=== PATIENT | male | born 1975 | race Hispanic/Latino ===

== ENCOUNTER 2022-08-15 22:14 | Inpatient (IN) | payer SELFPAY ==
[~2022-08-15 22:14] MED LIST: Iopamidol-370 76% 500 ML MDV (1 ML CHARGE) ONE
[2022-08-15] MEDS ORDERED: Nitroglycerin 2% Ointment 1 INCH/1 GM Packet ONE (22:38)
[2022-08-15 22:59] LABS: #Monocytes 1.7 thou/uL (0.11-0.59); %Basophils 0.1 % (0.0-1.0); %Lymphocytes 5.7 % (21.0-51.0); %Monocytes 9.3 % (0.0-10.0); %Neutrophils 84.9 % (42.0-75.0); Hemoglobin 15.2 g/dL (14.0-18.0); Mean Corpuscular HGB CONC 35.1 g/dL (32.0-36.0); Mean Corpuscular Hemoglobin 32.1 pg (27.0-31.0); Mean Corpuscular Volume 91.6 fl (78.0-98.0); Platelet Count 193 10x3/uL (130-400); RBC Distribution Width 11.3 % (11.5-14.5); Red Blood Cell (RBC) Count 4.73 mill/uL (4.70-6.10); White Blood Cell (WBC) Count 17.6 10x3/uL (4.8-10.8)
[2022-08-15 23:23] LABS: ALT (SGPT) 118 U/L (8-55); AST (SGOT) 91 U/L (5-34); Albumin 4.1 g/dL (3.5-5.0); Alkaline Phosphatase 172 U/L (40-110); Anion Gap 18 mmol/L (10-20); BUN (Urea Nitrogen) 15 mg/dL (8.9-20.6); Bilirubin, Total 6.5 mg/dL (0.2-1.2); CK (CPK) 129 U/L (30-200); Calc. Creatinine Clearance 0 mL/min (70-130); Calcium 9.1 mg/dL (7.8-10.44); Carbon Dioxide 24 mmol/L (22-29); Chloride 97 mmol/L (98-107); Estimated GFR 72; Globulin 3.1 g/dL (2.4-3.5); Glucose 149 mg/dL (70-105); Potassium 3.7 mmol/L (3.5-5.1); Protein, Total 7.2 g/dL (6.0-8.3); Sodium 135 mmol/L (136-145)
[2022-08-16] MEDS ORDERED: Piperacillin/Tazobactam 3.375 GM VIAL ONE ×2 (01:06→13:31)
[2022-08-16] MEDS ORDERED: Morphine 4 MG/ML VIAL ONE (01:06)
[2022-08-16] MEDS ORDERED: Ondansetron PF 4 MG/2 ML Vial IVP PRN (02:11)
[2022-08-16] MEDS ORDERED: Morphine 4 MG/ML VIAL SLOW IVP PRN ×2 (02:19→13:06)
[2022-08-16] MEDS: Lactated Ringer's 1,000 ML IV SCH ×4 (03:05→21:21)
[2022-08-16 03:16] VITALS: BMI 29.2
[2022-08-16] MEDS ORDERED: Piperacillin/Tazobactam 3.375 GM in Sodium Chloride 0.9% 100 ML IVPB SCH (06:00)
[2022-08-16 08:50] LABS: ALT (SGPT) 89 U/L (8-55); AST (SGOT) 61 U/L (5-34); Albumin 3.4 g/dL (3.5-5.0); Alkaline Phosphatase 143 U/L (40-110); Anion Gap 14 mmol/L (10-20); BUN (Urea Nitrogen) 14 mg/dL (8.9-20.6); Bilirubin, Total 6.2 mg/dL (0.2-1.2); Calc. Creatinine Clearance 90 mL/min (70-130); Calcium 8.5 mg/dL (7.8-10.44); Carbon Dioxide 25 mmol/L (22-29); Chloride 101 mmol/L (98-107); Estimated GFR 79; Glucose 106 mg/dL (70-105); Potassium 3.4 mmol/L (3.5-5.1); Protein, Total 6.4 g/dL (6.0-8.3); Sodium 137 mmol/L (136-145)
[2022-08-16] MEDS ORDERED: Bupivacaine HCl 0.5%/Epinephrine 1:200,000/PF 30 ml Vial ONE (11:06)
[2022-08-16] MEDS ORDERED: Iopamidol 15 ML ONE (11:06)
[2022-08-16] MEDS ORDERED: Levofloxacin 500 mg/D5W 100 ml Premix Bag ONE (12:47)
[2022-08-16] MEDS ORDERED: Midazolam HCl 2 mg/2 ml Vial ONE (12:58)
[2022-08-16] MEDS ORDERED: HYDROmorphone 0.5 MG/0.5 ML SYRINGE ONE (12:58)
[2022-08-16] MEDS ORDERED: fentaNYL PF 100 MCG/2 ML SYRINGE ONE (12:58)
[2022-08-16] MEDS ORDERED: Acetaminophen 500 MG TAB PO PRN (13:06)
[2022-08-16] MEDS ORDERED: Ketorolac Tromethamine 30 MG/ML VIAL IVP PRN (13:06)
[2022-08-16] MEDS ORDERED: traMADol HCl 50 MG TAB PO PRN (13:06)
[2022-08-16] MEDS ORDERED: Iopamidol 30 ML ONE ×2 (13:22→15:21)
[2022-08-16] MEDS ORDERED: Sodium Chloride 0.9% 100 ML ONE (13:31)
[2022-08-16] MEDS ORDERED: Lidocaine 1% PF 5 ML VIAL ONE (13:46)
[2022-08-16] MEDS ORDERED: Dexamethasone 20 MG/5 ML VIAL ONE (13:46)
[2022-08-16] MEDS ORDERED: Rocuronium Bromide 10 MG/ML (10ML VIAL) ONE (13:46)
[2022-08-16] MEDS ORDERED: Ondansetron PF 4 MG/2 ML Vial ONE (13:46)
[2022-08-16] MEDS ORDERED: NEOSTIGMINE 3 MG/3 ML SYR 3 MG/3 ML SYRINGE ONE (13:46)
[2022-08-16] MEDS ORDERED: GLYCOPYRROLATE/PF 0.2 MG/ML VIAL ONE (13:46)
[2022-08-16] MEDS ORDERED: PROPOFOL 200 MG/20 ML VIAL ONE (13:46)
[2022-08-16] MEDS ORDERED: Indomethacin 50 MG SUPP ONE (15:23)
[2022-08-16] MEDS ORDERED: SUGAMMADEX SODIUM 200 MG/2 ML VIAL ONE (16:36)
[2022-08-16] MEDS ORDERED: Ondansetron HCl/PF 4 MG/2 ML Vial IVP PRN (16:46)
[2022-08-16] MEDS ORDERED: Promethazine HCl 25 MG/ML VIAL IM PRN (16:46)
[2022-08-16] MEDS ORDERED: fentaNYL 50 mcg/mL 1 mL Vial ONE (17:14)
[2022-08-16 20:21] LABS: Bacteria/HPF None Seen HPF (None Seen); Bilirubin 1+ (Negative); Blood, Urine 2+ (Negative); Clarity Clear (Clear); Glucose, Urine (Dipstick) 70 mg/dL (Negative); Ketone, Urine 60 mg/dL (Negative); Leukocyte Negative Leu/uL (Negative); Nitrite Negative (Negative); Protein, Urine (Dipstick) 10 mg/dL (Neg-Trace); RBC/HPF 21-50 HPF (0-3); Specific Gravity, Urine 1.017 (1.002-1.036); Squamous Epithelial None Seen HPF (0-3); Urobilinogen 3 mg/dL (Less than 2); WBC/HPF 0-3 HPF (0-3)
[2022-08-17] MEDS: Lactated Ringer's 1,000 ML IV SCH ×2 (03:10→10:53)
[2022-08-17] MEDS ORDERED: Sodium Bicarbonate 2.5 MEQ/5 ML VIAL ONE ×2 (07:28→11:00)
[2022-08-17] MEDS ORDERED: Lidocaine 1% PF 5 ML VIAL ONE ×2 (07:28→11:00)
[2022-08-17] MEDS ORDERED: fentaNYL 50 mcg/mL 1 mL Vial ONE ×2 (07:28→11:00)
[2022-08-17] MEDS ORDERED: Midazolam HCl 2 mg/2 ml Vial ONE ×2 (07:28→11:00)
[2022-08-17 07:43] LABS: #Lymphocytes 1.2 thou/uL (1.20-3.40); #Monocytes 1.1 thou/uL (0.11-0.59); #Neutrophils 11.7 thou/uL (1.40-6.50); %Basophils 0.2 % (0.0-1.0); %Eosinophils 0.1 % (0.0-10.0); %Lymphocytes 8.3 % (21.0-51.0); %Neutrophils 83.4 % (42.0-75.0); Hemoglobin 12.7 g/dL (14.0-18.0); Mean Corpuscular HGB CONC 33.7 g/dL (32.0-36.0); Mean Corpuscular Hemoglobin 31.3 pg (27.0-31.0); Mean Corpuscular Volume 92.9 fl (78.0-98.0); Mean Platelet Volume 9.5 fL (7.4-10.4); Platelet Count 171 10x3/uL (130-400); RBC Distribution Width 11.3 % (11.5-14.5); Red Blood Cell (RBC) Count 4.08 mill/uL (4.70-6.10)
[2022-08-17 08:03] LABS: PTT 31.1 sec (22.9-36.1)
[2022-08-17 08:04] LABS: ALT (SGPT) 154 U/L (8-55); AST (SGOT) 134 U/L (5-34); Albumin 3.2 g/dL (3.5-5.0); Alkaline Phosphatase 134 U/L (40-110); Anion Gap 12 mmol/L (10-20); BUN (Urea Nitrogen) 15 mg/dL (8.9-20.6); Bilirubin, Total 2.2 mg/dL (0.2-1.2); Calc. Creatinine Clearance 106 mL/min (70-130); Calcium 8.5 mg/dL (7.8-10.44); Carbon Dioxide 26 mmol/L (22-29); Chloride 105 mmol/L (98-107); Estimated GFR 96; Globulin 3.1 g/dL (2.4-3.5); Glucose 132 mg/dL (70-105); Potassium 3.9 mmol/L (3.5-5.1); Protein, Total 6.3 g/dL (6.0-8.3); Sodium 139 mmol/L (136-145)
[2022-08-17 08:05] LABS: ALT (SGPT) 158 U/L (8-55); AST (SGOT) 138 U/L (5-34); Albumin 3.3 g/dL (3.5-5.0); Alkaline Phosphatase 139 U/L (40-110); Bilirubin, Direct 1.6 mg/dL (0.1-0.3); Bilirubin, Total 2.2 mg/dL (0.2-1.2); Protein, Total 6.4 g/dL (6.0-8.3)
[2022-08-17 08:12] LABS: INR-International Normal Ratio 1.1; Prothrombin Time 14.9 sec (12.0-14.7)
[2022-08-17 09:46] LABS: Lipase 6 U/L (8-78)
[2022-08-17] MEDS: hydrALAZINE 20 MG/ML VIAL SLOW IVP PRN (10:53)
[2022-08-17] MEDS ORDERED: Artificial Tear Sol 15 ML BOT R EYE PRN (16:55)
[2022-08-18 07:11] LABS: #Lymphocytes 2.2 thou/uL (1.20-3.40); #Monocytes 0.9 thou/uL (0.11-0.59); #Neutrophils 7.5 thou/uL (1.40-6.50); %Basophils 0.3 % (0.0-1.0); %Eosinophils 0.4 % (0.0-10.0); %Lymphocytes 20.5 % (21.0-51.0); %Monocytes 8.5 % (0.0-10.0); %Neutrophils 70.3 % (42.0-75.0); Hemoglobin 12.2 g/dL (14.0-18.0); Mean Corpuscular HGB CONC 32.2 g/dL (32.0-36.0); Mean Corpuscular Hemoglobin 30.5 pg (27.0-31.0); Mean Corpuscular Volume 94.8 fl (78.0-98.0); Mean Platelet Volume 9.3 fL (7.4-10.4); Platelet Count 186 10x3/uL (130-400); RBC Distribution Width 11.6 % (11.5-14.5); Red Blood Cell (RBC) Count 3.99 mill/uL (4.70-6.10); White Blood Cell (WBC) Count 10.7 10x3/uL (4.8-10.8)
[2022-08-18 07:33] LABS: ALT (SGPT) 120 U/L (8-55); AST (SGOT) 59 U/L (5-34); Albumin 3.1 g/dL (3.5-5.0); Alkaline Phosphatase 117 U/L (40-110); Bilirubin, Direct 0.9 mg/dL (0.1-0.3); Bilirubin, Total 1.3 mg/dL (0.2-1.2); Protein, Total 6.2 g/dL (6.0-8.3)
[2022-08-18 07:39] LABS: ALT (SGPT) 121 U/L (8-55); AST (SGOT) 63 U/L (5-34); Albumin 3.1 g/dL (3.5-5.0); Alkaline Phosphatase 120 U/L (40-110); Anion Gap 11 mmol/L (10-20); BUN (Urea Nitrogen) 13 mg/dL (8.9-20.6); Bilirubin, Total 1.4 mg/dL (0.2-1.2); Calc. Creatinine Clearance 127 mL/min (70-130); Calcium 8.5 mg/dL (7.8-10.44); Carbon Dioxide 26 mmol/L (22-29); Chloride 106 mmol/L (98-107); Estimated GFR 110; Globulin 3.2 g/dL (2.4-3.5); Glucose 91 mg/dL (70-105); Potassium 3.6 mmol/L (3.5-5.1); Protein, Total 6.3 g/dL (6.0-8.3); Sodium 139 mmol/L (136-145)
[2022-08-18] MEDS ORDERED: Losartan 25 MG TAB PO SCH (10:00)
[2022-08-18] MEDS: hydrALAZINE 20 MG/ML VIAL SLOW IVP PRN ×2 (13:56→20:43)
[2022-08-19] MEDS ORDERED: Losartan 25 MG TAB PO SCH ×2 (09:00)
[2022-08-19 15:30] VITALS: BP 164/101; TEMP 98.8
== END 2022-08-19 17:18 | disposition home or self-care (01) | DRG 659 ==
LOC: ERS 22:14 → T4-A 08-16 01:33 → OBSVTOIN 08-17 11:59
PROVIDERS: ADMIT Student in an Organized Health Care Education/Training Program; ATTEND Student in an Organized Health Care Education/Training Program
PROC: 0FT44ZZ Resection of Gallbladder, Percutaneous Endoscopic Approach (ICD-10-PCS; 2022-08-16)
PROC: 0T778DZ Dilation of Left Ureter with Intraluminal Device, Via Natural or Artificial Opening Endoscopic (ICD-10-PCS; 2022-08-16)
PROC: BF10YZZ Fluoroscopy of Bile Ducts using Other Contrast (ICD-10-PCS; 2022-08-16)
PROC: 0FC98ZZ Extirpation of Matter from Common Bile Duct, Via Natural or Artificial Opening Endoscopic (ICD-10-PCS; 2022-08-16)
PROC: 0T143JD Bypass Left Kidney Pelvis to Cutaneous with Synthetic Substitute, Percutaneous Approach (ICD-10-PCS; principal; 2022-08-17)
DX: N13.30 Unspecified hydronephrosis (principal); K85.10 Biliary acute pancreatitis without necrosis or infection; K80.66 Calculus of gallbladder and bile duct with acute and chronic cholecystitis without obstruction; K76.0 Fatty (change of) liver, not elsewhere classified; I10 Essential (primary) hypertension
CPT/HCPCS: 36415; 47532; 50430; 50432; 50437; 71045; 71275; 74176; 74181; 74330; 74420; 76705; 80053; 80076; 81001; 82550; 83690; 84145; 84484; 85025; 85379; 85610; 85730; 87040; 87086; 88304; 93005; 94760; 96365; 96375; 96376; C1729; C1889; G0378; J0360; J1100; J1170; J1611; J1956; J2250; J2270; J2405; J2543; J2704; J3010; J3490; J7120; Q9967

== ENCOUNTER 2022-08-29 12:47 | Outpatient (CLI) | payer OTHER | END 2022-08-29 12:48 | disposition home or self-care (01) | LOC: NM 12:47 | PROVIDERS: ATTEND Urology | DX: N13.2 Hydronephrosis with renal and ureteral calculous obstruction (principal) | CPT/HCPCS: 78708; A4641; A9562 ==

== ENCOUNTER 2022-09-08 07:07 | Outpatient (CLI) | payer OTHER ==
[2022-09-08] MEDS ORDERED: Iopamidol 370 76% 100 ML VIAL ONE (10:16)
== END 2022-09-08 07:08 | disposition home or self-care (01) ==
LOC: CT 07:07 → EDBD 07:07 → CT 07:08
PROVIDERS: ATTEND Urology
DX: N13.2 Hydronephrosis with renal and ureteral calculous obstruction (principal); Z93.6 Other artificial openings of urinary tract status
CPT/HCPCS: 74178

== ENCOUNTER 2022-09-09 07:19 | Outpatient (CLI) | payer SELFPAY ==
[2022-09-09 08:21] LABS: Hemoglobin 12.8 g/dL (13.5-17.5); Mean Corpuscular HGB CONC 32.2 g/dL (32.0-36.0); Mean Corpuscular Hemoglobin 28.6 pg (27.0-33.0); Mean Corpuscular Volume 88.8 fl (81.2-95.1); Mean Platelet Volume 10.6 fl (7.4-10.4); Platelet Count 274 10x3/uL (150-450); RBC Distribution Width 11.5 % (11.5-14.5); Red Blood Cell (RBC) Count 4.47 10x6/uL (4.32-5.72); White Blood Cell (WBC) Count 6.7 10x3/uL (3.5-10.5)
[2022-09-09 08:31] LABS: PTT 28.1 sec (22.0-33.0); Prothrombin Time 10.3 sec (9.5-12.1)
[2022-09-09 08:36] LABS: Anion Gap 13 mmol/L (10-20); BUN (Urea Nitrogen) 9 mg/dL (8.9-20.6); Calc. Creatinine Clearance 0 mL/min (70-130); Calcium 8.9 mg/dL (7.8-10.44); Carbon Dioxide 29 mmol/L (22-29); Chloride 103 mmol/L (98-107); Estimated GFR 97; Glucose 97 mg/dL (70-105); Potassium 4.5 mmol/L (3.5-5.1); Sodium 140 mmol/L (136-145)
[2022-09-09 08:49] LABS: Bilirubin Neg (Negative); Blood, Urine Negative (Negative); Clarity Clear (Clear); Glucose, Urine (Dipstick) Normal (Negative); Ketone, Urine Negative (Negative); Leukocyte 25 (Negative); Nitrite Negative (Negative); Protein, Urine (Dipstick) 15 mg/dl (Neg-Trace); Specific Gravity, Urine 1.015 (1.005-1.030); Urobilinogen Normal mg/dL (Less than 2)
[2022-09-09 08:57] LABS: Bacteria/HPF Rare-Few HPF (None Seen); Calcium Oxalate Crystals Rare HPF (None Seen); RBC/HPF 0-3 HPF (0-3); Squamous Epithelial 0-3 HPF (0-3)
== END 2022-09-09 07:20 | disposition home or self-care (01) ==
LOC: EDBD → LABBT 07:19
PROVIDERS: ATTEND Urology
DX: Z01.818 Encounter for other preprocedural examination (principal); N13.30 Unspecified hydronephrosis
CPT/HCPCS: 71046; 80048; 81001; 85027; 85610; 85730; 87086; 93005; 93010